=== PATIENT | female | born 2000 | race African-American/Black ===

== ENCOUNTER 2025-03-03 18:07 | Emergency (ER) | payer MEDICAID, OTHER ==
[~2025-03-03] VITALS: Ht 30.5 cm; Wt 0.5 kg
[2025-03-03 18:22] VITALS: O2SAT 100
[2025-03-03 18:26] VITALS: BP 115/53; PULSE 91; RESP 20
[2025-03-03] MEDS: MORPHINE SULFATE 2 MG/ML INJ (NOT FOR IM USE) IV ONE (18:26)
[2025-03-03] MEDS: ONDANSETRON HCL 4MG/2ML INJ ONE (18:26)
[2025-03-03] MEDS ORDERED: MORPHINE SULFATE 2 MG/ML INJ (NOT FOR IM USE) IV ONE (18:28)
[2025-03-03] MEDS ORDERED: ONDANSETRON HCL 4MG/2ML INJ IV NR (18:30)
[2025-03-03] MEDS ORDERED: LIDOCAINE HCL/EPINEPHRINE 1%-EPI 1:100,000 10ML VIAL INFIL ONE (18:30)
[2025-03-03] MEDS ORDERED: MORPHINE SULFATE 2 MG/ML INJ (NOT FOR IM USE) IV NR ×2 (18:30)
[2025-03-03] MEDS ORDERED: TETANUS AND DIPHTHERIA TOX/PF 0.5ML SYR (ADULT) IM ONE (18:45)
[2025-03-03] MEDS ORDERED: SODIUM CHLORIDE 0.9% 1,000 ML IV ONE (18:45)
[2025-03-03] MEDS ORDERED: TETANUS, DIPHTHERIA, PERTUSSIS VAC/PF 0.5ML (>10YR OLD) IM ONE (18:47)
[2025-03-03] MEDS ORDERED: CEFAZOLIN 1000MG PREMIX 50 ML IV NR (19:00)
== END 2025-03-03 19:18 | disposition short-term general hospital (02) ==
LOC: ER 18:07
DX: S21.131A Puncture wound without foreign body of right front wall of thorax without penetration into thoracic cavity, initial encounter (principal); S27.1XXA Traumatic hemothorax, initial encounter; J93.9 Pneumothorax, unspecified; W34.00XA Accidental discharge from unspecified firearms or gun, initial encounter; Y93.89 Activity, other specified; Y92.89 Other specified places as the place of occurrence of the external cause; Y99.8 Other external cause status
CPT/HCPCS: 36556; 86900; 86901; 86920; 36415; 74022; 90715; 99285; 96374; 71045; J2405; J2270; J7030; J0690; P9016